=== PATIENT | female | born 1955 | race African-American/Black ===

== ENCOUNTER 2017-07-27 10:34 | Emergency (ER) | payer MEDICARE, MEDICAID ==
--- NOTE | 2017-07-27 11:21 | ER Document Report ---
ED Medical Screen (RME) - General Chief Complaint: Vaginal Pain Stated Complaint: VAGINAL PAIN Time Seen by Provider: 07/27/17 11:15 Mode of Arrival: Ambulatory Information source: Patient Notes: 61-year-old female presents with complaints of pelvic pain, patient notes that symptoms have happened a few years ago, is been bothering her since Wednesday, patient denies any fevers or chills denies any abdominal pain states it is only in her pelvis feels like something is shopping I have greeted and performed a rapid initial assessment of this patient. A comprehensive ED assessment and evaluation of the patient, analysis of test results and completion of the medical decision making process will be conducted by additional ED providers. PHYSICAL EXAMINATION: GENERAL: Well-appearing, well-nourished and in no acute distress. HEAD: Atraumatic, normocephalic. EYES: Pupils equal round extraocular movements intact, conjunctiva are normal. ENT: Nares patent NECK: Normal range of motion LUNGS: No respiratory distress Musculoskeletal: Normal range of motion NEUROLOGICAL: Normal speech, normal gait. PSYCH: Normal mood, normal affect. SKIN: Warm, Dry, normal turgor, no rashes or lesions noted. TRAVEL OUTSIDE OF THE [place] IN LAST 30 DAYS: No - Related Data Allergies/Adverse Reactions: Penicillins Allergy (Verified 07/27/17 10:36) Past Medical History - Social History Chew tobacco use (# tins/day): No Frequency of alcohol use: None Drug Abuse: None - Past Medical History Cardiac Medical History: Reports: Hx Hypercholesterolemia, Hx Hypertension Pulmonary Medical History: Reports: Hx Bronchitis Renal/ Medical History: Denies: Hx Peritoneal Dialysis Psychiatric Medical History: Reports: Hx Depression Past Surgical History: Reports: Hx Breast Surgery - ca, Hx Cholecystectomy, Hx Orthopedic Surgery - right, Hx Tubal Ligation - Immunizations Hx Diphtheria, Pertussis, Tetanus Vaccination: No Physical Exam - Vital signs Vitals: Temp Pulse Resp BP Pulse Ox 98.1 F 96 20 131/63 H 95 07/27/17 10:45 07/27/17 10:45 07/27/17 10:45 07/27/17 10:45 07/27/17 10:45 Course - Vital Signs Vital signs: Temp Pulse Resp BP Pulse Ox 98.1 F 96 20 131/63 H 95 07/27/17 10:45 07/27/17 10:45 07/27/17 10:45 07/27/17 10:45 07/27/17 10:45
--- NOTE | 2017-07-27 12:24 | ER Document Report ---
ED General - General Chief Complaint: Vaginal Pain Stated Complaint: VAGINAL PAIN Time Seen by Provider: 07/27/17 11:15 Mode of Arrival: Ambulatory Information source: Patient Notes: 61-year-old female with history of hypertension, hyperlipidemia, diabetes, presents with complaints of bilateral thigh and labial pain. Patient states pain started 3 days prior to arrival. She describes it as a burning sensation that is worse with ambulation. Patient states she did have prior similar symptoms a few years ago and was seen by a specialist but nothing was found at that time. Patient denies any recent injury, saddle anesthesia, leg weakness, fever, history of IV drug use.. She does have low back pain which is chronic for her. She states this is unchanged. Patient has not been sexually active for over 5 years. She denies any dysuria, hematuria, vaginal discharge. TRAVEL OUTSIDE OF THE [place] IN LAST 30 DAYS: No - Related Data Allergies/Adverse Reactions: Penicillins Allergy (Verified 07/27/17 10:36) Past Medical History - General Information source: Patient - Social History Smoking Status: Former Smoker Chew tobacco use (# tins/day): No Frequency of alcohol use: None Drug Abuse: None Lives with: Family Family History: Reviewed & Not Pertinent Patient has suicidal ideation: No Patient has homicidal ideation: No - Past Medical History Cardiac Medical History: Reports: Hx Hypercholesterolemia, Hx Hypertension Pulmonary Medical History: Reports: Hx Bronchitis Renal/ Medical History: Denies: Hx Peritoneal Dialysis Musculoskeltal Medical History: Reports Hx Musculoskeletal Deformity - Chronic low back pain Psychiatric Medical History: Reports: Hx Depression Past Surgical History: Reports: Hx Breast Surgery - ca, Hx Cholecystectomy, Hx Orthopedic Surgery - right, Hx Tubal Ligation - Immunizations Hx Diphtheria, Pertussis, Tetanus Vaccination: No Review of Systems - Review of Systems Notes: Patient denies fever, chills, nausea, vomiting, weakness, headache, ear pain, sore throat, cough, chest pain, shortness of breath, abdominal pain, back pain, dysuria, hematuria, rash, SI/HI. Physical Exam - Vital signs Vitals: Temp Pulse Resp BP Pulse Ox 98.1 F 96 20 131/63 H 95 07/27/17 10:45 07/27/17 10:45 07/27/17 10:45 07/27/17 10:45 07/27/17 10:45 - Notes Notes: PHYSICAL EXAMINATION: GENERAL: Well-appearing, well-nourished and in no acute distress. HEAD: Atraumatic, normocephalic. EYES: Pupils equal round and reactive to light, extraocular movements intact, conjunctiva are normal. ENT: Nares patent, oropharynx clear without exudates. Moist mucous membranes. NECK: Normal range of motion, supple without lymphadenopathy LUNGS: Breath sounds clear to auscultation bilaterally and equal. No wheezes rales or rhonchi. HEART: Regular rate and rhythm without murmurs ABDOMEN: Soft, nontender, nondistended abdomen. No guarding, no rebound. No masses appreciated. Female : No labial lesions, labial abscess. Thighs and vagina nontender with palpation. Musculoskeletal: Normal range of motion, no pitting or edema. No cyanosis. NEUROLOGICAL: Cranial nerves grossly intact. Normal speech, normal gait. Normal sensory, motor exams PSYCH: Normal mood, normal affect. SKIN: Warm, Dry, normal turgor, no rashes or lesions noted. Surgical scar clean dry and intact of the right knee Course - Re-evaluation Re-evalutation: Transvaginal US 07/27/17 11:20 IMPRESSION: OVARIES NOT VISUALIZED. OTHERWISE UNREMARKABLE TRANSVAGINAL PELVIC ULTRASOUND. 07/27/17 14:33 61-year-old female presents with complaint bilateral thigh pain and exterior vaginal pain. Patient was seen by myself upon arrival. Vital signs were reviewed. Patient is afebrile, normotensive and not hypoxic. Patient does not appear toxic or dehydrated. They are in no acute distress. Previous medical records and nursing notes reviewed. Patient has a completely normal exam. There is no pain with palpation of the legs, labia. There are no external lesions. No lymphadenopathy. Transvaginal ultrasound was obtained and within normal limits. Urinalysis is without any evidence of infection. Patient is ambulating without difficulty. Patient was advised to follow-up with her primary care physician. 07/27/17 14:34 - Vital Signs Vital signs: Temp Pulse Resp BP Pulse Ox 98.1 F 96 20 131/63 H 95 07/27/17 10:45 07/27/17 10:45 07/27/17 10:45 07/27/17 10:45 07/27/17 10:45 - Diagnostic Test Radiology reviewed: Pending, Image reviewed Discharge - Discharge Clinical Impression: Vaginal pain Thigh pain, musculoskeletal Qualifiers: Laterality: unspecified laterality Qualified Code(s): M79.606 - Pain in leg, unspecified Condition: Good Disposition: HOME, SELF-CARE Instructions: Leg Pain Nonspecific ([facility]) Additional Instructions: Follow up with your physician tomorrow for further care or return to the ED IMMEDIATELY if symptoms worsen or new concerns occur. If you cannot afford to follow up with your primary care physician a list of low cost clinics have been provided at the end of your discharge papers as well. Prescriptions: Ibuprofen [Motrin 600 Mg Tablet] 600 mg PO TID #15 tablet Oxycodone HCl/Acetaminophen [Percocet 5-325 mg Tablet] 1 tab PO Q4H PRN #15 tablet PRN Reason:
[2017-07-27 12:47] LABS: APPEARANCE,URINE CLEAR; BILIRUBIN,URINE NEGATIVE (NEGATIVE); COLOR,URINE YELLOW; GLUCOSE, URINE NEGATIVE (NEGATIVE); KETONES,URINE NEGATIVE (NEGATIVE); LEUKOCYTE ESTERASE,URINE NEGATIVE (NEGATIVE); NITRITE,URINE NEGATIVE (NEGATIVE); PROTEIN,URINE NEGATIVE (NEGATIVE); URINE SPECIFIC GRAVITY 1.008; UROBILINOGEN,URINE NEGATIVE mg/dL (<2.0)
--- NOTE | 2017-07-27 13:23 | RADIOLOGY REPORT (SQ) ---
EXAM DESCRIPTION: U/S NON-OB PELVIS TV W/O DOP COMPLETED DATE/TIME: 07/27/2017 1:13 pm REASON FOR STUDY: pelvic pain COMPARISON: None. TECHNIQUE: Dynamic and static grayscale images acquired of the pelvis via transvaginal approach and recorded on PACS. Additional selected color Doppler and spectral images recorded. LIMITATIONS: None. FINDINGS: UTERUS: Contour normal. No mass. ENDOMETRIAL STRIPE: No focal or generalized thickening. No masses. CERVIX: No nabothian cysts. RIGHT ADNEXUM: No abnormal masses. RIGHT OVARY AND DOPPLER: Ovary not visualized. LEFT ADNEXUM: No abnormal masses. LEFT OVARY AND DOPPLER: Ovary not visualized. FREE FLUID: None noted. OTHER: No other significant finding. MEASUREMENTS: UTERUS: 2.4 x 3.4 x 5.5 cm. ENDOMETRIAL STRIPE: 5 mm. RIGHT OVARY: Not visualized. LEFT OVARY: Not visualized. IMPRESSION: OVARIES NOT VISUALIZED. OTHERWISE UNREMARKABLE TRANSVAGINAL PELVIC ULTRASOUND. TECHNICAL DOCUMENTATION: JOB ID: [id number] [employer]- All Rights Reserved Reading location - IP/workstation name: [email or web address]
[2017-07-27 14:33] VITALS: BP 115/56
== END 2017-07-27 14:20 | disposition home or self-care (01) ==
LOC: ER 10:34
DX: R10.2 Pelvic and perineal pain (principal); M79.606 Pain in leg, unspecified; E78.5 Hyperlipidemia, unspecified; E11.9 Type 2 diabetes mellitus without complications; Z90.49 Acquired absence of other specified parts of digestive tract; Z98.51 Tubal ligation status
CPT/HCPCS: 76830; 81001; 99284

== ENCOUNTER 2018-03-24 10:44 | Emergency (ER) | payer MEDICARE, MEDICAID ==
--- NOTE | 2018-03-24 11:18 | ER Document Report ---
ED Medical Screen (RME) - General Chief Complaint: Chest Pain Stated Complaint: RIGHT SHOULDER PAIN Time Seen by Provider: 03/24/18 11:10 Notes: 62-year-old female patient comes emergency room complaining of 5-day history of pain to the right scapular area and right anterior chest. Pain is made worse with movement. She did have a right mastectomy E over 5 years ago with negative lymph nodes. She was treated with radiation and chemo by history. Patient is on chronic pain management and takes Percocet 5 mg 4 times daily. I have greeted and performed a rapid initial assessment of this patient. A comprehensive ED assessment and evaluation of the patient, analysis of test results and completion of the medical decision making process will be conducted by additional ED providers. TRAVEL OUTSIDE OF THE [place] IN LAST 30 DAYS: No - Related Data Allergies/Adverse Reactions: Penicillins Allergy (Verified 07/27/17 10:36) Past Medical History - Past Medical History Cardiac Medical History: Reports: Hx Hypercholesterolemia, Hx Hypertension Pulmonary Medical History: Reports: Hx Bronchitis Renal/ Medical History: Denies: Hx Peritoneal Dialysis Musculoskeltal Medical History: Reports Hx Musculoskeletal Deformity - Chronic low back pain Psychiatric Medical History: Reports: Hx Depression Past Surgical History: Reports: Hx Breast Surgery - ca, Hx Cholecystectomy, Hx Orthopedic Surgery - right, Hx Tubal Ligation - Immunizations Hx Diphtheria, Pertussis, Tetanus Vaccination: No
[2018-03-24 11:48] LABS: ABSOLUTE BASOPHILS # (AUTO) 0.1 10^3/uL (0.0-0.2); ABSOLUTE EOSINOPHILS # (AUTO) 0.2 10^3/uL (0.0-0.6); ABSOLUTE LYMPHOCYTES (AUTO) 3.4 10^3/uL (0.5-4.7); ABSOLUTE MONOCYTES (AUTO) 0.7 10^3/uL (0.1-1.4); ABSOLUTE NEUT (AUTO) 4.3 10^3/uL (1.7-8.2); BASOPHILS % (AUTO) 1.6 % (0-2); EOSINOPHILS % (AUTO) 2.6 % (0-6); HEMATOCRIT 42.6 % (36.0-47.0); HEMOGLOBIN 14.7 g/dL (12.0-15.5); LYMPHOCYTES % (AUTO) 38.5 % (13-45); MEAN CORPUSCULAR HEMOGLOBIN 28.9 pg (27.0-33.4); MEAN CORPUSCULAR HGB CONC 34.6 g/dL (32.0-36.0); MEAN CORPUSCULAR VOLUME 83 fl (80-97); MONOCYTES % (AUTO) 7.7 % (3-13); PLATELET COUNT 368 10^3/uL (150-450); RED CELL DISTRIBUTION WIDTH 14.9 % (11.5-14.0); SEGMENTED NEUTROPHILS % (AUTO) 49.6 % (42-78); TOTAL CELLS COUNTED % (AUTO) 100 %; WHITE BLOOD COUNT 8.8 10^3/uL (4.0-10.5)
--- NOTE | 2018-03-24 11:50 | RADIOLOGY REPORT (SQ) ---
EXAM DESCRIPTION: CHEST 2 VIEWS COMPLETED DATE/TIME: 03/24/2018 11:41 am REASON FOR STUDY: Right scapular and chest pain COMPARISON: None. EXAM PARAMETERS: NUMBER OF VIEWS: two views TECHNIQUE: Digital Frontal and Lateral radiographic views of the chest acquired. RADIATION DOSE: NA LIMITATIONS: none FINDINGS: LUNGS AND PLEURA: No opacities, masses or pneumothorax. No pleural effusion. MEDIASTINUM AND HILAR STRUCTURES: No masses or contour abnormalities. HEART AND VASCULAR STRUCTURES: Heart normal size. No evidence for failure. BONES: No acute findings. HARDWARE: None in the chest. OTHER: No other significant finding. IMPRESSION: NO ACUTE RADIOGRAPHIC FINDING IN THE CHEST. TECHNICAL DOCUMENTATION: JOB ID: [id number] [employer]- All Rights Reserved Reading location - IP/workstation name: [email or web address]
[2018-03-24] MEDS ORDERED: MORPHINE SULFATE 10 MG/ML INJ IV ONE (11:54)
--- NOTE | 2018-03-24 11:58 | ER Document Report ---
ED General - General Chief Complaint: Chest Pain Stated Complaint: RIGHT SHOULDER PAIN Time Seen by Provider: 03/24/18 11:10 TRAVEL OUTSIDE OF THE [place] IN LAST 30 DAYS: No - HPI Notes: Patient is a 62-year-old female that presents to the emergency department for chief complaint of right back and chest pain. Patient reports a constant pain in her right scapula radiating around to her right anterior chest since Wednesday. The pain is worse with movement and when she uses her right arm to pull herself up. She has taken Eliza-Worthing and Percocet at home with minimal relief. She denies injury or trauma. She denies any dyspnea but states the pain is worse when she takes a deep breath in. She is smoking daily and has not had to decrease her tobacco use. Patient has a history of breast cancer in the past and has had right mastectomy. She denies history of PE or DVT. She denies any leg swelling, palpitations, diaphoresis and vomiting. She states occasionally she will be nauseated but she has not currently. She denies any recent fevers or illness. Past Medical History: Hypertension, hyperlipidemia, diabetes, breast cancer Past Surgical History: Cholecystectomy, right mastectomy Social History: Daily tobacco. Denies drug and alcohol use Family History: Reviewed and noncontributory for presenting illness Allergies: Reviewed, see documented allergy list. REVIEW OF SYSTEMS: CONSTITUTIONAL : No fever No chills No diaphoresis No recent illness EENT: No vision changes No congestion No sore throat CARDIOVASCULAR: chest pain No palpitations RESPIRATORY: No shortness of breath No cough No difficulty breathing GASTROINTESTINAL: No abdominal pain No nausea No vomiting No diarrhea GENITOURINARY: No dysuria No hematuria No difficulty urinating MUSCULOSKELETAL: back pain No leg pain No arm pain SKIN: No rashes No lesions LYMPHATIC: No swollen, enlarged glands. NEUROLOGICAL: No lightheadedness No headache No weakness No paresthesias PSYCHIATRIC: No anxiety No depression PHYSICAL EXAMINATION: Vital signs reviewed, nursing noted reviewed. GENERAL: Well-appearing, well-nourished and in no acute distress. HEAD: Atraumatic, normocephalic. EYES: Eyes appear normal, extraocular movements intact, sclera anicteric, conjunctiva are normal. ENT: nares patent, oropharynx clear without exudates. Moist mucous membranes. NECK: Normal range of motion, supple without lymphadenopathy LUNGS: Breath sounds clear to auscultation bilaterally and equal. No wheezes rales or rhonchi. HEART: Regular rate and rhythm without murmurs ABDOMEN: Protuberant, soft, nontender, normoactive bowel sounds. No rebound, guarding, or rigidity. No masses appreciated. EXTREMITIES: No bony tenderness, good range of motion, no pitting or edema. Back: Thoracic paraspinal muscle tenderness just medial to right scapula. No midline thoracic or lumbar tenderness. No overlying erythema or rash NEUROLOGICAL: No focal neurological deficits. Moves all extremities spontaneously Motor and sensory grossly intact on exam. PSYCH: Normal mood, normal affect. SKIN: Warm, Dry, normal turgor, no rashes or lesions noted on exposed skin - Related Data Allergies/Adverse Reactions: Penicillins Allergy (Verified 07/27/17 10:36) Past Medical History - Social History Smoking Status: Current Every Day Smoker Frequency of alcohol use: None Drug Abuse: None Family History: Reviewed & Not Pertinent Patient has suicidal ideation: No Patient has homicidal ideation: No - Past Medical History Cardiac Medical History: Reports: Hx Hypercholesterolemia, Hx Hypertension Pulmonary Medical History: Reports: Hx Bronchitis Renal/ Medical History: Denies: Hx Peritoneal Dialysis Musculoskeletal Medical History: Reports Hx Musculoskeletal Deformity - Chronic low back pain Psychiatric Medical History: Reports: Hx Depression Past Surgical History: Reports: Hx Breast Surgery - ca, Hx Cholecystectomy, Hx Orthopedic Surgery - right, Hx Tubal Ligation - Immunizations Hx Diphtheria, Pertussis, Tetanus Vaccination: No Physical Exam - Vital signs Vitals: Temp Resp BP Pulse Ox 97.3 F 18 155/52 H 99 03/24/18 11:10 03/24/18 11:10 03/24/18 11:10 03/24/18 11:10 Course - Re-evaluation Re-evalutation: 03/24/18 11:57 Vitals reviewed. Nursing notes reviewed. Patient given morphine for her pain. Her EKG shows sinus rhythm with no acute ischemia. Patient's pain is reproducible with palpation of her paraspinal thoracic muscles and movement of her shoulder. There is no bony tenderness or history of injury. Chest x-ray shows no acute process. 03/24/18 15:34 Patient's lab work is unremarkable. Her chest pain has been constant for a few days and her troponin is negative. I do not suspect ACS. CT scan shows no acute pulmonary embolism or masses. Patient's symptoms are reproducible with palpation and movement and are likely musculoskeletal in nature. She has pain medication at home that she takes for chronic low back pain therefore further pain medication prescriptions not indicated. Patient will follow closely with her primary care providers for reevaluation in the next few days. She will return for new or worsening symptoms. Stable at discharge. Laboratory 03/24/18 03/24/18 03/24/18 11:38 11:38 11:38 WBC 8.8 RBC 5.10 Hgb 14.7 Hct 42.6 MCV 83 MCH 28.9 MCHC 34.6 RDW 14.9 H Plt Count 368 Seg Neutrophils % 49.6 Lymphocytes % 38.5 Monocytes % 7.7 Eosinophils % 2.6 Basophils % 1.6 Absolute Neutrophils 4.3 Absolute Lymphocytes 3.4 Absolute Monocytes 0.7 Absolute Eosinophils 0.2 Absolute Basophils 0.1 D-Dimer Sodium 141.4 Potassium 4.2 Chloride 103 Carbon Dioxide 29 Anion Gap 9 BUN 10 Creatinine 0.72 Est GFR ( Amer) > 60 Est GFR (Non-Af Amer) > 60 Glucose 84 Calcium 9.7 Total Bilirubin 0.3 Direct Bilirubin 0.2 Neonat Total Bilirubin Not Reportable Neonat Direct Bilirubin Not Reportable Neonat Indirect Bili Not Reportable AST 24 ALT 19 Alkaline Phosphatase 122 Creatine Kinase 124 CK-MB (CK-2) 0.53 Troponin I < 0.012 Total Protein 7.6 Albumin 4.5 Urine Color Urine Appearance Urine pH Ur Specific Clifford Urine Protein Urine Glucose (UA) Urine Ketones Urine Blood Urine Nitrite Urine Bilirubin Urine Urobilinogen Ur Leukocyte Esterase Urine WBC (Auto) Urine RBC (Auto) Squamous Epi Cells Auto Urine Mucus (Auto) Urine Ascorbic Acid 03/24/18 03/24/18 11:38 12:45 WBC RBC Hgb Hct MCV MCH MCHC RDW Plt Count Seg Neutrophils % Lymphocytes % Monocytes % Eosinophils % Basophils % Absolute Neutrophils Absolute Lymphocytes Absolute Monocytes Absolute Eosinophils Absolute Basophils D-Dimer 0.51 H Sodium Potassium Chloride Carbon Dioxide Anion Gap BUN Creatinine Est GFR ( Amer) Est GFR (Non-Af Amer) Glucose Calcium Total Bilirubin Direct Bilirubin Neonat Total Bilirubin Neonat Direct Bilirubin Neonat Indirect Bili AST ALT Alkaline Phosphatase Creatine Kinase CK-MB (CK-2) Troponin I Total Protein Albumin Urine Color YELLOW Urine Appearance CLEAR Urine pH 5.0 Ur Specific Clifford 1.010 Urine Protein NEGATIVE Urine Glucose (UA) NEGATIVE Urine Ketones NEGATIVE Urine Blood NEGATIVE Urine Nitrite NEGATIVE Urine Bilirubin NEGATIVE Urine Urobilinogen NEGATIVE Ur Leukocyte Esterase TRACE H Urine WBC (Auto) 1 Urine RBC (Auto) 0 Squamous Epi Cells Auto 2 Urine Mucus (Auto) RARE Urine Ascorbic Acid NEGATIVE Chest X-Ray 03/24/18 11:17 IMPRESSION: NO ACUTE RADIOGRAPHIC FINDING IN THE CHEST. Chest/Abdomen CTA 03/24/18 12:46 IMPRESSION: NORMAL CTA OF THE CHEST. NO PULMONARY EMBOLI. - Vital Signs Vital signs: Temp Pulse Resp BP Pulse Ox 97.3 F 18 155/52 H 99 03/24/18 11:10 03/24/18 11:10 03/24/18 11:10 03/24/18 11:10 - Laboratory Result Diagrams: 03/24/18 11:38 03/24/18 11:38 Laboratory results interpreted by me: 03/24/18 03/24/18 03/24/18 11:38 11:38 12:45 RDW 14.9 H D-Dimer 0.51 H Ur Leukocyte Esterase TRACE H - EKG Interpretation by Me Additional EKG results interpreted by me: 03/24/18 11:57 Interpreted by myself 1058: Normal sinus rhythm, rate 90, normal axis, no ectopy, normal WA interval, no ST elevation Discharge - Discharge Clinical Impression: Back pain Qualifiers: Back pain location: thoracic back pain Chronicity: acute Back pain laterality: right Qualified Code(s): M54.6 - Pain in thoracic spine Chest pain Qualifiers: Chest pain type: unspecified Qualified Code(s): R07.9 - Chest pain, unspecified Condition: Stable Disposition: HOME, SELF-CARE Instructions: Chest Pain of Unclear Cause ([facility]) Additional Instructions: Please return to the emergency department if you have any worsening, or concern of your symptoms. Please return to the emergency department if you develop chest pain, difficulty breathing, severe abdominal pain, or ongoing vomiting. Please follow-up with your primary care physician in 2-3 days and any other recommended physicians. If prescribed, take all medications as directed. If you have any questions or concerns do not hesitate to return the emergency department for evaluation. Follow-up with your primary care doctor or the one provided for reevaluation in the next few days Referrals: [facility] [Provider Group] - Follow up in 3-5 days
[2018-03-24 12:04] LABS: ALANINE AMINOTRANSFERASE 19 U/L (9-52); ALBUMIN 4.5 g/dL (3.5-5.0); ALKALINE PHOSPHATASE 122 U/L (38-126); ANION GAP 9 (5-19); ASPARTATE AMINO TRANSFERASE 24 U/L (14-36); BILIRUBIN,DIRECT 0.2 mg/dL (0.0-0.4); BILIRUBIN,TOTAL 0.3 mg/dL (0.2-1.3); BLOOD UREA NITROGEN 10 mg/dL (7-20); CALCIUM 9.7 mg/dL (8.4-10.2); CARBON DIOXIDE 29 mmol/L (22-30); CHLORIDE 103 mmol/L (98-107); CREATINE KINASE 124 U/L (30-135); GLUCOSE 84 mg/dL (75-110); POTASSIUM 4.2 mmol/L (3.6-5.0); SODIUM 141.4 mmol/L (137-145); TOTAL PROTEIN 7.6 g/dL (6.3-8.2)
[2018-03-24 12:13] LABS: CREATINE KINASE MB 0.53 ng/mL (<4.55)
[2018-03-24 12:14] LABS: TROPONIN I < 0.012 ng/mL
--- NOTE | 2018-03-24 13:05 | EKG REPORT ---
SEVERITY:- ABNORMAL ECG - SINUS RHYTHM PROBABLE LEFT ATRIAL ABNORMALITY PROBABLE LEFT VENTRICULAR HYPERTROPHY BORDERLINE T ABNORMALITIES, INFERIOR LEADS : Confirmed by: Arian Flores MD 24-Mar-2018 13:04:25
[2018-03-24 13:06] LABS: APPEARANCE,URINE CLEAR; BILIRUBIN,URINE NEGATIVE (NEGATIVE); COLOR,URINE YELLOW; GLUCOSE, URINE NEGATIVE (NEGATIVE); KETONES,URINE NEGATIVE (NEGATIVE); LEUKOCYTE ESTERASE,URINE TRACE (NEGATIVE); NITRITE,URINE NEGATIVE (NEGATIVE); PROTEIN,URINE NEGATIVE (NEGATIVE); UROBILINOGEN,URINE NEGATIVE mg/dL (<2.0)
--- NOTE | 2018-03-24 14:45 | RADIOLOGY REPORT (SQ) ---
EXAM DESCRIPTION: CTA CHEST COMPLETED DATE/TIME: 03/24/2018 2:31 pm REASON FOR STUDY: PE study, right chest pain COMPARISON: None. TECHNIQUE: CT scan of the chest performed using helical scanning technique with dynamic intravenous contrast injection. Images reviewed with lung, soft tissue and bone windows. Reconstructed coronal and sagittal MPR images reviewed. Additional 3 dimensional post-processing performed to develop Maximal Intensity Projection images (VT P). All images stored on PACS. All CT scanners at this facility use dose modulation, iterative reconstruction, and/or weight based d osing when appropriate to reduce radiation dose to as low as reasonably achievable (ALARA). [facility]: Dose Right [facility]: CareDose [facility]: Dose Right [facility]: Teradose 4D [facility]: VivoText CONTRAST TYPE AND DOSE: contrast/concentration: Isovue 350.00 mg/ml; Total Contrast Delivered: 78.0 ml; Total Saline Delivered: 80.0 ml Contrast bolus adequate for pulmonary arteries and aorta. RENAL FUNCTION: BUN 10 creatinine 0.72. RADIATION DOSE: CT Rad equipment meets quality standard of care and radiation dose reduction techniq ues were employed. CTDIvol: 26.9 - 33.1 mGy. DLP: 1034 mGy-cm. . LIMITATIONS: None. FINDINGS: LUNGS AND PLEURA: No masses, infiltrates, or pneumothorax. No pleural effusions or pleura l calcifications. AORTA AND GREAT VESSELS: No aneurysm. No dissection. HEART: No pericardial effusion. No significant coronary artery calcifications. PULMONARY ARTERIES: No emboli visualized in the main pulmonary arteries or the segmental branches. HILAR AND MEDIASTINAL STRUCTURES: No identified masses or abnormal nodes. HARDWARE: None in the chest. UPPER ABDOMEN: No significant findings. Limited exam. THYROID AND OTHER SOFT TISSUES: No masses. No adenopathy. BONES: No acute or significant finding. 3D MIPS: Confirm above findings. OTHER: No other significant finding. IMPRESSION: NORMAL CTA OF THE CHEST. NO PULMONARY EMBOLI. COMMENT: Quality ID # [id number]: Final reports with documentation of one or more dose reduction techniques (e.g., Automated exposure control, adjustment of the mA and/or kV according to patient size, use of iterative reconstruction technique) TECHNICAL DOCUMENTATION: JOB ID: [id number] [employer]- All Rights Reserved Reading location - IP/workstation name: [email or web address]
[2018-03-24 15:40] VITALS: BP 133/65
== END 2018-03-24 15:47 | disposition home or self-care (01) ==
LOC: ER 10:44
DX: M54.6 Pain in thoracic spine (principal); R07.9 Chest pain, unspecified; M25.511 Pain in right shoulder; I10 Essential (primary) hypertension; E78.5 Hyperlipidemia, unspecified; Z90.49 Acquired absence of other specified parts of digestive tract
CPT/HCPCS: 93005; 99285; 96374; 36415; 82553; 82550; 85025; 80053; 81001; 84484; 85379; 71046; 71275; 93010; J2270

== ENCOUNTER 2019-02-16 06:40 | Emergency (ER) | payer MEDICARE, MEDICAID ==
[2019-02-16] MEDS ORDERED: HYDROMORPHONE HCL 2 MG TABLET PO ONE (08:09)
[2019-02-16] MEDS ORDERED: PREDNISONE 20 MG TABLET PO ONE (08:10)
--- NOTE | 2019-02-16 08:16 | ER Document Report ---
Entered by SANDOR VASQUEZ SCRIBE 02/16/19 0754 Acting as scribe for:URBAN SMITH IV, MD ED General - General Chief Complaint: Hip Pain Stated Complaint: RIGHT HIP PAIN Time Seen by Provider: 02/16/19 07:41 Mode of Arrival: Ambulatory Information source: Patient Notes: 63-year-old female who presents to the emergency department today with complaints of right-sided hip pain that radiates down her leg to the front of her thigh and stops. Patient states she is on pain management and she has tried her Percocet and muscle relaxers for this with no relief. Patient states she gets relief when she bends over and her pain is exacerbated with laying down in the supine position. Patient denies any abdominal pain. TRAVEL OUTSIDE OF THE [place] IN LAST 30 DAYS: No - Related Data Allergies/Adverse Reactions: Penicillins Allergy (Verified 07/27/17 10:36) Home Medications: oxycodone, ibuprofen, lisinopril, metformin, avortastatin, requip,. glipizide, citalopram, Past Medical History - General Information source: Patient - Social History Smoking Status: Current Every Day Smoker Cigarette use (# per day): Yes Frequency of alcohol use: None Drug Abuse: None Lives with: Family Family History: Reviewed & Not Pertinent Patient has suicidal ideation: No Patient has homicidal ideation: No - Past Medical History Cardiac Medical History: Reports: Hx Hypercholesterolemia, Hx Hypertension Pulmonary Medical History: Reports: Hx Bronchitis Musculoskeletal Medical History: Reports Hx Musculoskeletal Deformity - Chronic low back pain Psychiatric Medical History: Reports: Hx Depression Past Surgical History: Reports: Hx Breast Surgery - ca, Hx Cholecystectomy, Hx Orthopedic Surgery - right, Hx Tubal Ligation - Immunizations Hx Diphtheria, Pertussis, Tetanus Vaccination: No Review of Systems - Review of Systems Constitutional: No symptoms reported EENT: No symptoms reported Cardiovascular: No symptoms reported Respiratory: No symptoms reported Gastrointestinal: denies: Abdominal pain Genitourinary: No symptoms reported Female Genitourinary: No symptoms reported Musculoskeletal: See HPI, Joint pain - right hip Skin: No symptoms reported Hematologic/Lymphatic: No symptoms reported Neurological/Psychological: No symptoms reported -: Yes All other systems reviewed and negative Physical Exam - Vital signs Vitals: Temp Pulse Resp BP Pulse Ox 98.0 F 87 16 148/67 H 98 02/16/19 06:47 02/16/19 06:47 02/16/19 06:47 02/16/19 06:47 02/16/19 06:47 - Notes Notes: Physical Exam: General: Alert, appears uncomfortable. HEENT: Normocephalic. Atraumatic. PERRL. Extraocular movements intact. Oropharynx clear. Neck: Supple. Non-tender. Respiratory: No respiratory distress. Clear and equal breath sounds bilaterally. Cardiovascular: Regular rate and rhythm. Abdominal: Obese. No pulsatile abdominal masses. Non-tender. No distension. Normal Bowel Sounds. Back: Positive straight leg raise on the right beginning at 40. Extremities: Moves all four extremities. Upper extremities: Normal inspection. Normal ROM. Lower extremities: Normal inspection. No edema. Normal ROM. Neurological: Normal cognition. AAOx4. Normal speech. Psychological: Normal affect. Normal Mood. Skin: Warm. Dry. Normal color. Course - Vital Signs Vital signs: Temp Pulse Resp BP Pulse Ox 97.3 F 80 16 177/67 H 100 02/16/19 08:30 02/16/19 08:30 02/16/19 08:30 02/16/19 08:30 02/16/19 08:30 Discharge - Discharge Clinical Impression: Right sided sciatica Condition: Good Disposition: HOME, SELF-CARE Additional Instructions: RETURN TO THE ED AT ANY TIME (CALL 911) IF SYMPTOMS WORSEN DESPITE TAKING MEDICATION PRESCRIBED. FOLLOW UP WITH DR. REVELES WITHIN 4 DAYS. HOME CARE INSTRUCTIONS & INFORMATION: Thank you for choosing us for your medical needs. We hope you're satisfied with the care you received. After you leave, you must properly care for your problem and, at the same time, observe its progress. Any condition can change. Some illnesses can change rapidly over hours or days. If your condition worsens, return to the Emergency Department or see your physician promptly. ABOUT YOUR X-RAYS AND EKG'S: If you had an EKG or X-rays taken, they have been read by the Emergency Physician. The X-rays and EKG's will also be read by a Radiologist or Club Waiter/Waitress within 24 hours. If discrepancies are noted, you will be notified by telephone. Please be certain the ED has a correct telephone number & address where you can be reached. Also, realize that some fractures or abnormalities do not show up on initial X-rays. If your symptoms continue, see your physician. ABOUT YOUR LABORATORY TEST: If you had laboratory tests, the results have been reviewed by the Emergency Physician. Some test results (for example cultures) may not be available for several days. You will be contacted if any test result shows you need additional treatment. Please be certain the ED has a correct telephone number and address where you can be reached. ABOUT YOUR MEDICATIONS: You will receive instructions on how to take your medicine on the prescription label you receive. Additional information may be provided by the Pharmacy. If you have questions afterwards, call the ED for clarification or further instructions. Some prescribed medications may cause drowsiness. Do not perform tasks such as driving a car or operating machinery without consulting your Pharmacist. If you feel you need a refill of pain medication, your condition will need re-evaluation. Please do not call for a refill of any medication. ABOUT YOUR SIGNATURE: Signature of this document acknowledges to followin. Understanding that you received emergency treatment and that you may be released before al medical problems are known or treated. Please be certain the ED has a correct phone number & address where you can be reached. 2. Acknowledgement that you will arrange for follow-up care as recommended. 3. Authorization for the Emergency Physician to provide information to your follow-up Physician in order to maximize your care. AT ANY TIME, IF YOUR SYMPTOMS CHANGE SIGNIFICANTLY OR WORSEN OR YOU DEVELOP NEW SYMPTOMS, RETURN TO THE EMERGENCY DEPARTMENT IMMEDIATELY FOR RE-EVALUATION. OUR GOAL IS TO PROVIDE EXCELLENT MEDICAL CARE! WE HOPE THAT WE HAVE MET YOUR EXPECTATIONS DURING YOUR EMERGENCY DEPARTMENT VISIT AND THAT YOU FEEL YOU HAVE RECEIVED EXCELLENT CARE! Sciatica Your symptoms suggest "sciatica." The pain of sciatica typically radiates down the leg. Numbness in the foot or calf may also occur. Sciatica is caused by irritation of the sciatic nerve or its branches. The irritation can be due to a herniated disk in the spine, swelling and inflammation in the muscles surrounding the sciatic nerve, or direct injury of the nerve itself. Most cases of sciatica will resolve with medical treatment. Bed rest is usually recommended initially. Surgery is only necessary when the condition will not improve with rest and antiinflammatory medication. Muscle relaxers are often given if muscle soreness is present. A CAT scan of the back may be performed if a herniated disk is suspected. Re-examination is necessary if you develop increasing numbness, localized weakness in the foot or ankle, or if the pain does not respond to rest. Prescriptions: Prednisone [Deltasone 20 mg Tablet] 3 tab PO DAILY 4 Days #12 tablet I personally performed the services described in the documentation, reviewed and edited the documentation which was dictated to the scribe in my presence, and it accurately records my words and actions.
[2019-02-16 08:31] VITALS: BP 177/67
== END 2019-02-16 08:25 | disposition home or self-care (01) ==
LOC: ER 06:40
DX: M54.31 Sciatica, right side (principal); M25.551 Pain in right hip; M79.604 Pain in right leg; Z79.899 Other long term (current) drug therapy; F17.210 Nicotine dependence, cigarettes, uncomplicated; Z88.0 Allergy status to penicillin; I10 Essential (primary) hypertension
CPT/HCPCS: 99283; A9270 ×2; J7512